=== PATIENT | male | born 1945 | race Caucasian/White ===

== ENCOUNTER → 2020-12-13 | Outpatient (CLI) | payer MEDICARE ==
[~2020-12-13] VITALS: Ht 172.7 cm; Wt 93.1 kg
[2020-12-13 10:01] VITALS: BP 123/92
== END | disposition home or self-care (01) ==
LOC: SRCNTR 09:40
PROVIDERS: ATTEND Internal Medicine
DX: R05 Cough (principal); J32.9 Chronic sinusitis, unspecified; K21.9 Gastro-esophageal reflux disease without esophagitis; J44.1 Chronic obstructive pulmonary disease with (acute) exacerbation; I25.10 Atherosclerotic heart disease of native coronary artery without angina pectoris; I10 Essential (primary) hypertension; R09.82 Postnasal drip; Z77.090 Contact with and (suspected) exposure to asbestos
CPT/HCPCS: G0463

== ENCOUNTER → 2020-12-26 | Outpatient (CLI) | payer MEDICARE | END | disposition home or self-care (01) | LOC: RADMN 09:29 | PROVIDERS: ATTEND Internal Medicine | DX: I70.0 Atherosclerosis of aorta (principal); J92.9 Pleural plaque without asbestos | CPT/HCPCS: 71250 ==

== ENCOUNTER → 2021-01-07 | Outpatient (CLI) | payer MEDICARE ==
[~2021-01-07] VITALS: Ht 172.7 cm; Wt 92.5 kg
[2021-01-07 11:49] VITALS: BP 124/76
== END | disposition home or self-care (01) ==
LOC: SRCNTR 11:25
PROVIDERS: ATTEND Internal Medicine
DX: R05 Cough (principal); I25.10 Atherosclerotic heart disease of native coronary artery without angina pectoris; I10 Essential (primary) hypertension; J32.9 Chronic sinusitis, unspecified; K21.9 Gastro-esophageal reflux disease without esophagitis; J42 Unspecified chronic bronchitis; R09.82 Postnasal drip; J44.9 Chronic obstructive pulmonary disease, unspecified; Z77.090 Contact with and (suspected) exposure to asbestos
CPT/HCPCS: G0463; Z7500

== ENCOUNTER → 2021-04-23 | Outpatient (CLI) | payer MEDICARE ==
[~2021-04-23] VITALS: Ht 172.7 cm; Wt 93.6 kg
[2021-04-23 10:43] VITALS: BP 110/63
== END | disposition home or self-care (01) ==
LOC: SRCNTR 10:04
PROVIDERS: ATTEND Internal Medicine
DX: J44.9 Chronic obstructive pulmonary disease, unspecified (principal); K21.9 Gastro-esophageal reflux disease without esophagitis; I25.10 Atherosclerotic heart disease of native coronary artery without angina pectoris; I10 Essential (primary) hypertension; R09.82 Postnasal drip; J32.9 Chronic sinusitis, unspecified; Z77.090 Contact with and (suspected) exposure to asbestos
CPT/HCPCS: G0463

== ENCOUNTER → 2021-07-04 | Outpatient (CLI) | payer MEDICARE ==
[~2021-07-04] VITALS: Ht 172.7 cm; Wt 94.2 kg
[2021-07-04 11:14] VITALS: BP 102/62
== END | disposition home or self-care (01) ==
LOC: SRCNTR 10:56
PROVIDERS: ATTEND Internal Medicine
DX: J42 Unspecified chronic bronchitis (principal); K21.9 Gastro-esophageal reflux disease without esophagitis; I10 Essential (primary) hypertension; I25.10 Atherosclerotic heart disease of native coronary artery without angina pectoris; R91.8 Other nonspecific abnormal finding of lung field; J32.9 Chronic sinusitis, unspecified; R09.82 Postnasal drip; Z77.090 Contact with and (suspected) exposure to asbestos; Z95.5 Presence of coronary angioplasty implant and graft
CPT/HCPCS: G0463

== ENCOUNTER → 2022-07-01 | Outpatient (CLI) | payer MEDICARE ==
[~2022-07-01] VITALS: Ht 172.7 cm; Wt 87.2 kg
[2022-07-01 09:55] VITALS: BP 136/95
== END | disposition home or self-care (01) ==
LOC: SRCNTR 09:37
PROVIDERS: ATTEND Internal Medicine
DX: K21.9 Gastro-esophageal reflux disease without esophagitis (principal); Z09 Encounter for follow-up examination after completed treatment for conditions other than malignant neoplasm; J42 Unspecified chronic bronchitis; R05.9 Cough, unspecified; R09.82 Postnasal drip; I10 Essential (primary) hypertension; I25.10 Atherosclerotic heart disease of native coronary artery without angina pectoris; J32.9 Chronic sinusitis, unspecified
CPT/HCPCS: G0463; Z7500

== ENCOUNTER → 2022-07-03 | Outpatient (CLI) | payer MEDICARE | END | disposition home or self-care (01) | LOC: RADMN 12:22 | PROVIDERS: ATTEND Internal Medicine | DX: J94.8 Other specified pleural conditions (principal); J98.11 Atelectasis; R16.0 Hepatomegaly, not elsewhere classified; Z77.090 Contact with and (suspected) exposure to asbestos | CPT/HCPCS: 71250 ==

== ENCOUNTER → 2022-07-23 | Outpatient (CLI) | payer MEDICARE ==
[~2022-07-23] VITALS: Ht 172.7 cm; Wt 86.8 kg
[2022-07-23 11:54] VITALS: BP 129/80
== END | disposition home or self-care (01) ==
LOC: SRCNTR 10:50
PROVIDERS: ATTEND Internal Medicine
DX: I10 Essential (primary) hypertension (principal); I25.10 Atherosclerotic heart disease of native coronary artery without angina pectoris; I35.0 Nonrheumatic aortic (valve) stenosis; K21.9 Gastro-esophageal reflux disease without esophagitis; R09.82 Postnasal drip; J42 Unspecified chronic bronchitis; J61 Pneumoconiosis due to asbestos and other mineral fibers; Z95.5 Presence of coronary angioplasty implant and graft
CPT/HCPCS: G0463

== ENCOUNTER → 2022-11-13 | Outpatient (CLI) | payer MEDICARE ==
[~2022-11-13] VITALS: Ht 172.7 cm; Wt 85.1 kg
[~2022-11-13] MED LIST: ATOR10TA PO; CLOP75TA60 PO; FLUT16SP NASAL; GUAIF600 PO
[2022-11-13 11:35] VITALS: BP 101/58
== END | disposition home or self-care (01) ==
LOC: SRCNTR 11:19
PROVIDERS: ATTEND Internal Medicine
DX: I10 Essential (primary) hypertension (principal); K21.9 Gastro-esophageal reflux disease without esophagitis; R05.8 Other specified cough; J32.9 Chronic sinusitis, unspecified; R09.82 Postnasal drip; Z77.090 Contact with and (suspected) exposure to asbestos; I25.10 Atherosclerotic heart disease of native coronary artery without angina pectoris; Z95.5 Presence of coronary angioplasty implant and graft
CPT/HCPCS: G0463; Z7500

== ENCOUNTER → 2023-02-25 | Outpatient (CLI) | payer MEDICARE | END | disposition home or self-care (01) | LOC: RADMN 09:40 | PROVIDERS: ATTEND Internal Medicine | DX: J92.9 Pleural plaque without asbestos (principal); J94.8 Other specified pleural conditions; J84.89 Other specified interstitial pulmonary diseases; I25.10 Atherosclerotic heart disease of native coronary artery without angina pectoris; Z90.49 Acquired absence of other specified parts of digestive tract; M51.35 Other intervertebral disc degeneration, thoracolumbar region | CPT/HCPCS: 71250 ==

== ENCOUNTER → 2023-04-15 | Outpatient (CLI) | payer MEDICARE ==
[~2023-04-15] VITALS: Ht 172.7 cm; Wt 84.0 kg
[2023-04-15 09:21] VITALS: BP 121/70; PULSE 63; RESP 18; TEMP 97.7; O2SAT 93
== END | disposition home or self-care (01) ==
LOC: SRCNTR 09:09
PROVIDERS: ATTEND Internal Medicine
DX: I10 Essential (primary) hypertension (principal); I25.10 Atherosclerotic heart disease of native coronary artery without angina pectoris; I35.0 Nonrheumatic aortic (valve) stenosis; K21.9 Gastro-esophageal reflux disease without esophagitis; J40 Bronchitis, not specified as acute or chronic; R05.9 Cough, unspecified; R09.82 Postnasal drip; Z95.5 Presence of coronary angioplasty implant and graft
CPT/HCPCS: G0463